=== PATIENT | male | born 1950 | race Caucasian/White ===

== ENCOUNTER 2021-11-01 12:56 | Emergency (ER) | payer MEDICARE ==
--- NOTE | 2021-11-01 16:14 | ED ---
Skin/Abscess/FB HPI - General Chief complaint: Skin/Abscess/Foreign Body Stated complaint: foreign body in rectum Time Seen by Provider: 11/01/21 16:00 Source: patient, family, RN notes reviewed, old records reviewed Mode of arrival: ambulatory Limitations: no limitations - History of Present Illness Initial comments: This is a well-appearing 70-year-old male who presents to the emergency room with complaints of rectal pain. Patient states that he swallowed a pill that was still in the plastic blister pack 2 days ago and now he feels the pain in th e rectum. He states he did have a bowel movement today however it is sharp and painful at the rectum and he can feel a foreign body. MD complaint: foreign body (rectum) -: days(s) (2) Location: buttocks (rectum) Severity scale (1-10): 5 Quality: sharp, constant Consistency: constant Worsens with: none Associated symptoms: denies other symptoms Treatments Prior to Arrival: none - Related Data Allergies Allergy/AdvReac Type Severity Reaction Status Date / Time vancomycin Allergy Unknown Verified 11/01/21 13:28 Review of Systems ROS Statement: Those systems with pertinent positive or pertinent negative responses have been documented in the HPI. ROS Other: All systems not noted in ROS Statement are negative. Past Medical History Past Medical History: Coronary Artery Disease (CAD), Diabetes Mellitus, Hyperlipidemia, Hypertension, Myocardial Infarction (ME) History of Any Multi-Drug Resistant Organisms: None Reported Past Surgical History: Appendectomy, Back Surgery, Orthopedic Surgery Additional Past Surgical History / Comment(s): splenectomy Past Psychological History: No Psychological Hx Reported Smoking Status: Never smoker Past Alcohol Use History: None Reported Past Drug Use History: None Reported General Exam Limitations: no limitations General appearance: alert Head exam: Present: atraumatic Respiratory exam: Absent: respiratory distress, accessory muscle use Cardiovascular Exam: Present: regular rate Rectal exam: Present: normal rectal tone, other (foreign body, pill within hard plastic individual package ). Absent: bloody stool, fecal impaction, hemorrhoids Extremities exam: Present: normal capillary refill Neurological exam: Present: alert, oriented X3, normal gait Psychiatric exam: Present: normal affect, normal mood Skin exam: Present: warm, dry, normal color Course Vital Signs 11/01/21 13:24 Temperature 98 F Pulse Rate 73 Respiratory 16 Rate Blood Pressure 165/83 O2 Sat by Pulse 99 Oximetry Medical Decision Making - Medical Decision Making Patient presents ambulatory with with complaints of swallowing a pill w ithin the hard plastic individual package 2 days ago. He is having normal bowel movements denies any hematochezia. Denies any nausea or vomiting. On rectal exam, the foreign body was felt and was retrieved still within plastic packaging and removed. Patient is now pain-free. He has no other complaints. He will be discharged home and directed to return to the emergency room with any new or co ncerning symptoms. Case discussed with Dr. Sesay Disposition Clinical Impression: Rectal foreign body Disposition: HOME SELF-CARE Condition: Good Instructions (If sedation given, give patient instructions): Rectal Foreign Body (ED) Additional Instructions: Return to the emergency room with any new or concerning symptoms including increased pain or rectal bleeding. Is patient prescribed a controlled substance at d/c from ED?: No Referrals: Nonstaff,Physician [Primary Care Provider] - 1-2 days Time of Disposition: 16:13
[2021-11-01 16:34] VITALS: BP 134/72; PULSE 72; RESP 18; TEMP 98.5
== END 2021-11-01 18:36 | disposition home or self-care (01) ==
LOC: EC 12:56
DX: T18.5XXA Foreign body in anus and rectum, initial encounter (principal); I25.10 Atherosclerotic heart disease of native coronary artery without angina pectoris; E11.9 Type 2 diabetes mellitus without complications; E78.5 Hyperlipidemia, unspecified; I10 Essential (primary) hypertension; I25.2 Old myocardial infarction; Z88.1 Allergy status to other antibiotic agents
CPT/HCPCS: 99283